=== PATIENT | female | born 1945 | race Caucasian/White ===

== ENCOUNTER 2018-01-02 07:48 | Day surgery (SDC) | payer MEDICARE ==
[~2018-01-02] VITALS: Ht 165.1 cm; Wt 55.6 kg
[2018-01-02] VITALS (23 sets, daily range): BP systolic 115–173; BP diastolic 61–96
[2018-01-02] MEDS ORDERED: normal saline 1000ml 1,000 ML IV SCH (08:10)
[2018-01-02] MEDS ORDERED: ONDA4TAB12 PO (08:27)
[2018-01-02] MEDS ORDERED: SIMV20TA5 PO (08:27)
[2018-01-02] MEDS ORDERED: HYDR-4383 PO (08:27)
[2018-01-02] MEDS ORDERED: CHOL10002 PO (08:27)
[2018-01-02 08:50] LABS: BASOPHILS # (AUTO) 0.1 X10'3 (0-0.2); BASOPHILS % (AUTO) 0.9 % (0-1); EOSINOPHILS # (AUTO) 0.2 X10'3 (0-0.9); EOSINOPHILS % (AUTO) 2.4 % (0-6); HEMATOCRIT 42.9 % (35.0-45.0); HEMOGLOBIN 14.2 g/dl (12.0-16.0); LYMPHOCYTES # (AUTO) 1.3 X10'3 (1.1-4.8); LYMPHOCYTES % (AUTO) 16.9 % (21-51); MEAN CORPUSCULAR HEMOGLOBIN 29.2 PG (27.0-31.0); MEAN CORPUSCULAR HGB CONC 33.1 % (33.0-36.5); MEAN CORPUSCULAR VOLUME 88.3 FL (78-98); MONOCYTES # (AUTO) 0.6 X10'3 (0-0.9); MONOCYTES % (AUTO) 7.4 % (2-12); NEUTROPHILS # (AUTO) 5.7 X10'3 (1.8-7.7); NEUTROPHILS % (AUTO) 72.4 % (42-75); PLATELET COUNT 287 X10'3 (140-440); RED BLOOD COUNT 4.86 X10'6 (4.20-5.60); RED CELL DISTRIBUTION WIDTH 13.1 % (11.5-14.5); WHITE BLOOD COUNT 7.8 X10'3 (4.5-11.0)
[2018-01-02 08:52] LABS: ALBUMIN 3.7 G/DL (3.4-5.0); ANION GAP 11 (8-16); BLOOD UREA NITROGEN 13 MG/DL (7-18); BUN/CREATININE RATIO 16.3 (6.6-38.0); CALCIUM 8.8 MG/DL (8.5-10.1); CHLORIDE 102 MMOL/L (99-107); GLUCOSE 93 MG/DL (70-104); POTASSIUM 3.7 MMOL/L (3.5-5.1); SODIUM 141 MMOL/L (135-145); TOTAL CARBON DIOXIDE 27.7 MMOL/L (24-32); eGFR 71 ML/MIN
[2018-01-02] MEDS ORDERED: LIDOcaine 1%/PF 5ML 10 MG/ML VIAL SQ ONE (09:45)
[2018-01-02] MEDS ORDERED: fentaNYL/PF 50MCG/1 ML 2ML syringe IV PRN (09:45)
[2018-01-02] MEDS ORDERED: midazolam 2 mg/2 ml injection IV PRN (09:45)
[2018-01-02] MEDS ORDERED: midazolam 2 mg/2 ml injection ONE (10:25)
[2018-01-02] MEDS ORDERED: fentaNYL/PF 50MCG/1 ML 2ML syringe ONE (10:25)
[2018-01-02] MEDS ORDERED: ondansetron/PF 4mg/2ml inj ONE (10:28)
[2018-01-02] MEDS ORDERED: LIDOcaine 1% (10mg/ml)w/preservative injection 20ml MDV SQ ONE (10:35)
[2018-01-02] MEDS ORDERED: ondansetron/PF 4mg/2ml inj IV ONE (10:40)
[2018-01-02] MEDS ORDERED: LIDOcaine 0.5% (5mg/ml) 50ml vial ONE (11:12)
[2018-01-02] MEDS ORDERED: heparin sodium, porcine/PF 100unit/ml 5ML syringe ONE (11:12)
== END 2018-01-02 13:55 | disposition home or self-care (01) ==
LOC: SSTAY O 07:48
PROVIDERS: ATTEND Radiology Diagnostic Radiology
DX: C34.12 Malignant neoplasm of upper lobe, left bronchus or lung (principal); C34.11 Malignant neoplasm of upper lobe, right bronchus or lung; E78.5 Hyperlipidemia, unspecified; Z88.5 Allergy status to narcotic agent; Z90.49 Acquired absence of other specified parts of digestive tract; Z98.890 Other specified postprocedural states; Z79.891 Long term (current) use of opiate analgesic; Z79.899 Other long term (current) drug therapy
CPT/HCPCS: 32405; 36415; 36561; 71045; 76937; 77001; 77012; 80048; 85025; 88341; 88342; 99152; 99153; A6219; C1769; C1788; C1894; J1642; J2001; J2250; J2405; J3010; J7030; 88305

== ENCOUNTER 2018-01-07 09:42 | Emergency (ER) | payer MEDICARE ==
[~2018-01-07] VITALS: Ht 165.1 cm; Wt 55.0 kg
[~2018-01-07 09:42] MED LIST: CHOL10002 PO; HYDR-4383 PO; ONDA4TAB12 PO; SIMV20TA5 PO
[2018-01-07] MEDS ORDERED: morphine 4 MG/ML inj SYRINge IV ONE (10:45)
[2018-01-07] MEDS ORDERED: ondansetron/PF 4mg/2ml inj IV ONE (10:45)
[2018-01-07 10:48] LABS: BASOPHILS # (AUTO) 0.1 X10'3 (0-0.2); BASOPHILS % (AUTO) 0.8 % (0-1); EOSINOPHILS % (AUTO) 0.6 % (0-6); HEMATOCRIT 38.5 % (35.0-45.0); HEMOGLOBIN 13.1 g/dl (12.0-16.0); LYMPHOCYTES # (AUTO) 0.8 X10'3 (1.1-4.8); MEAN CORPUSCULAR HEMOGLOBIN 29.9 PG (27.0-31.0); MEAN CORPUSCULAR HGB CONC 34.1 % (33.0-36.5); MEAN CORPUSCULAR VOLUME 87.7 FL (78-98); MEAN PLATELET VOLUME 7.4 FL (7.4-10.4); MONOCYTES # (AUTO) 0.2 X10'3 (0-0.9); MONOCYTES % (AUTO) 3.2 % (2-12); NEUTROPHILS # (AUTO) 6.6 X10'3 (1.8-7.7); NEUTROPHILS % (AUTO) 85.4 % (42-75); PLATELET COUNT 278 X10'3 (140-440); RED BLOOD COUNT 4.39 X10'6 (4.20-5.60); RED CELL DISTRIBUTION WIDTH 12.3 % (11.5-14.5); WHITE BLOOD COUNT 7.7 X10'3 (4.5-11.0)
[2018-01-07 10:59] LABS: INR 0.9 INR; PARTIAL THROMBOPLASTIN TIME 22 SECONDS (22-32); PROTHROMBIN TIME 9.8 SECONDS (9.0-12.0)
[2018-01-07 11:08] LABS: ALANINE AMINOTRANSFERASE 18 U/L (12-78); ALBUMIN 3.1 G/DL (3.4-5.0); ALBUMIN/GLOBULIN RATIO 0.8 (1.1-1.5); ALKALINE PHOSPHATASE 82 IU/L (46-116); ANION GAP 11 (8-16); ASPARTATE AMINO TRANSFERASE 27 U/L (10-37); BILIRUBIN,TOTAL 0.5 MG/DL (0.1-1.0); BLOOD UREA NITROGEN 18 MG/DL (7-18); CHLORIDE 101 MMOL/L (99-107); CREATININE 0.82 MG/DL (0.40-0.90); GLUCOSE 97 MG/DL (70-104); POTASSIUM 3.6 MMOL/L (3.5-5.1); SODIUM 140 MMOL/L (135-145); TOTAL CARBON DIOXIDE 28.1 MMOL/L (24-32); TOTAL PROTEIN 7.2 G/DL (6.4-8.2); eGFR 69 ML/MIN
[2018-01-07] MEDS ORDERED: iohexol 300mg/ml 100ml inj. ONE (11:24)
[2018-01-07 12:51] VITALS: BP 142/90
[2018-01-07] MEDS ORDERED: dexamethasone sod phosphate 10mg/ml inj IV STA (13:40)
[2018-01-07] MEDS ORDERED: PRED20TA PO (13:47)
== END 2018-01-07 14:06 | disposition home or self-care (01) ==
LOC: ER 09:43
DX: R22.1 Localized swelling, mass and lump, neck (principal); Z79.899 Other long term (current) drug therapy; Z85.118 Personal history of other malignant neoplasm of bronchus and lung; Z87.891 Personal history of nicotine dependence
CPT/HCPCS: 36415; 70491; 80053; 85025; 85610; 85730; 96374; 96375; 99285; J2270; J2405; Q9967

== ENCOUNTER 2019-12-12 16:03 | Emergency (ER) | payer MEDICARE ==
[~2019-12-12] VITALS: Ht 165.1 cm; Wt 55.0 kg
[~2019-12-12 16:03] MED LIST changes: +SIMV-42 PO; -SIMV20TA5 PO
[2019-12-12 17:47] VITALS: BP 164/84
== END 2019-12-12 17:48 | disposition home or self-care (01) ==
LOC: ER 16:03
DX: R22.0 Localized swelling, mass and lump, head (principal); R22.1 Localized swelling, mass and lump, neck; R22.32 Localized swelling, mass and lump, left upper limb; Z85.118 Personal history of other malignant neoplasm of bronchus and lung; Z98.51 Tubal ligation status; Z98.890 Other specified postprocedural states; Z88.5 Allergy status to narcotic agent; Z79.899 Other long term (current) drug therapy
CPT/HCPCS: 99281

== ENCOUNTER 2020-02-27 07:47 | Day surgery (SDC) | payer MEDICARE ==
[~2020-02-27] VITALS: Ht 165.1 cm; Wt 53.2 kg
[2020-02-27] VITALS (7 sets, daily range): BP systolic 124–165; BP diastolic 59–86
[2020-02-27] MEDS ORDERED: APIX5TAB3 PO (08:28)
[2020-02-27] MEDS ORDERED: FORM20VI IH (08:28)
[2020-02-27] MEDS ORDERED: BUDE0.5A3 NEB (08:28)
[2020-02-27 09:58] LABS: BFSOURCE RIGHT PLEURAL FLD
[2020-02-27 10:10] LABS: GLUCOSE,BODY FLUID 101 MG/DL; LDH,BODY FLUID 155 U/L; TOTAL PROTEIN,BODY FLUID 4.3 G/DL
[2020-02-27 11:20] LABS: BF RBC COUNT 11125 /CU MM; BF WBC COUNT 1150 /CU MM (0-1000); BFAPPEAR CLOUDY; BFCOLOR AMBER; BFVOLUME 60 ML
[2020-02-27 11:23] LABS: BASOPHILS,BODY FLUID 1 %; EOSINOPHILS,BODY FLUID 1 %; LYMPHOCYTES,BODY FLUID 70 %; MONOCYTES,BODY FLUID 5 %; NEUTROPHILS,BODY FLUID 23 %
[2020-02-27 11:24] LABS: BF MESOTHELIAL CELLS OCCASIONAL
== END 2020-02-27 10:30 | disposition home or self-care (01) ==
LOC: SSTAY O 07:47
PROVIDERS: ATTEND Radiology Vascular & Interventional Radiology
DX: J90 Pleural effusion, not elsewhere classified (principal); E78.00 Pure hypercholesterolemia, unspecified; J44.9 Chronic obstructive pulmonary disease, unspecified; Z98.51 Tubal ligation status; Z90.49 Acquired absence of other specified parts of digestive tract; Z98.890 Other specified postprocedural states; Z88.5 Allergy status to narcotic agent; Z88.8 Allergy status to other drugs, medicaments and biological substances; Z79.01 Long term (current) use of anticoagulants; Z79.899 Other long term (current) drug therapy; Z20.828 Contact with and (suspected) exposure to other viral communicable diseases
CPT/HCPCS: 32555; 36415; 71045; 82945; 83615; 83986; 84157; 85610; 87070; 87635; 89051

== ENCOUNTER 2020-04-01 08:02 | Day surgery (SDC) | payer MEDICARE ==
[~2020-04-01] VITALS: Ht 165.1 cm; Wt 53.8 kg
[2020-04-01] VITALS (7 sets, daily range): BP systolic 128–169; BP diastolic 68–103
[~2020-04-01 08:02] MED LIST changes: +APIX5TAB3 PO; +BUDE0.5A3 NEB; +FORM20VI IH; -HYDR-4383 PO; -ONDA4TAB12 PO
[2020-04-01] MEDS ORDERED: albumin 25% 100mL bottle x 1 IV PRN (08:35)
[2020-04-01] MEDS ORDERED: midazolam 2 mg/2 ml injection ONE (09:44)
[2020-04-01] MEDS ORDERED: fentaNYL/PF 50MCG/1 ML 2ML syringe ONE (09:44)
[2020-04-01] MEDS ORDERED: LIDOcaine 1%/PF 5ML 10 MG/ML VIAL ONE (09:45)
--- NOTE | 2020-04-01 11:00 | NUR ---
Called Dr. Rascon re discharge time for pt. stated ok to DC pt 30 minutes post return to Short Stay unit.
== END 2020-04-01 11:30 | disposition home or self-care (01) ==
LOC: SSTAY O 08:02
PROVIDERS: ATTEND Radiology Vascular & Interventional Radiology
DX: Z45.2 Encounter for adjustment and management of vascular access device (principal); J90 Pleural effusion, not elsewhere classified; Z20.828 Contact with and (suspected) exposure to other viral communicable diseases; C34.11 Malignant neoplasm of upper lobe, right bronchus or lung
CPT/HCPCS: 32555; 36415; 36590; 71045; 87635; J2250; J3010; 88108; 88305; 88341; 88342; 99152; 99153